=== PATIENT | male | born 1940 | race Caucasian/White ===

== ENCOUNTER 2017-01-05 22:11 | Inpatient (IN) | payer OTHER ==
[~2017-01-05] VITALS: Ht 177.8 cm; Wt 94.4 kg
[~2017-01-05 22:11] MED LIST: Ascorbic Acid,Ester- PO; CLEOCIN T60 ML TP; Coumadin Protocol PO; DONNATAL1 TABLET PO; ERYTHROMYCIN TP; FERROUS SULFATE PO; FLUOXETINE HCL20 M1 PO; Feosol PO; Folvite PO; GLUCOPHAGE500 MG PO; Glucophage PO; HUMALOG100 UNIT/2 SC; Hydrodiuril,Oretic,E PO; K-Dur PO; LANTUS 3 M100 UNITS1 SC; LIPITOR20 MG PO; LOMOTIL TABLET1 EACH PO; Melatonin PO; Oscal 500 w/Vitamin PO; PRANDIN2 MG PO; PROzac PO; Prandin PO; Pravachol PO; Senokot S,Pericolace PO; TYLENOL REGULA325 MG PO; Theragran PO; VALIUM5 MG PO; VITAMIN B-12500 MC5 SL; VITAMIN D400 UNIT PO; Valium PO; Vitamin B-12 PO; Vitamin D PO
[2017-01-06 12:52] VITALS: BP 131/65
[2017-01-06 13:34] LABS: ALKALINE PHOSPHATASE 74 IU/L (3-129); ANION GAP 11 MEQ/L (2-14); CHLORIDE 105 MEQ/L (99-109); GFR ESTIMATE (CALCULATED) > 59 mL/min/; GLUCOSE 71 mg/dL (70-99); POTASSIUM 3.9 MEQ/L (3.7-5.4); SAMPLE HEMOLYSIS CHECK 0; SAMPLE ICTERIC CHECK 0; SAMPLE LIPEMIA CHECK 0; SODIUM 141 MEQ/L (136-147); TOTAL BILIRUBIN 0.6 MG/DL (0.0-1.0); UREA NITROGEN (BUN) 23 mg/dL (9-23)
[2017-01-06 16:39] LABS: POINT-OF-CARE METER ID UU13113675
[2017-01-06 17:52] VITALS: BP 145/67
[2017-01-06 19:34] VITALS: BP 110/57
[2017-01-06 22:41] LABS: POINT-OF-CARE METER ID UU14174215
[2017-01-07 00:22] VITALS: BP 122/57
[2017-01-07 04:17] VITALS: BP 110/60
[2017-01-07 05:32] LABS: HEMATOCRIT 38.9 % (38.0-50.0); MCV 92.2 FL (86-99)
[2017-01-07 06:28] LABS: ANION GAP 9 MEQ/L (2-14); CHLORIDE 106 MEQ/L (99-109); GFR ESTIMATE (CALCULATED) > 59 mL/min/; POTASSIUM 4.3 MEQ/L (3.7-5.4); SAMPLE HEMOLYSIS CHECK 0; SAMPLE ICTERIC CHECK 0; SAMPLE LIPEMIA CHECK 0; SODIUM 140 MEQ/L (136-147); UREA NITROGEN (BUN) 30 mg/dL (9-23)
[2017-01-07 06:29] LABS: GLUCOSE 141 mg/dL (70-99)
[2017-01-07 08:01] LABS: POINT-OF-CARE METER ID UU14174215
[2017-01-07 08:10] VITALS: BP 114/71
[2017-01-07 11:37] VITALS: BP 151/68
[2017-01-07 11:40] LABS: POINT-OF-CARE METER ID UU14174215
[2017-01-07 15:37] VITALS: BP 163/70
[2017-01-07 16:47] LABS: POINT-OF-CARE METER ID UU14174215
[2017-01-07 19:36] VITALS: BP 179/81
[2017-01-07 21:56] LABS: POINT-OF-CARE METER ID UU14174215
[2017-01-08] VITALS (7 sets, daily range): BP systolic 106–180; BP diastolic 54–85
[2017-01-08 07:06] LABS: HEMATOCRIT 34.3 % (38.0-50.0); MCV 88.4 FL (86-99)
[2017-01-08 07:34] LABS: POINT-OF-CARE METER ID UU14174215
[2017-01-08 09:41] LABS: ALKALINE PHOSPHATASE 66 IU/L (3-129); ANION GAP 9 MEQ/L (2-14); CHLORIDE 96 MEQ/L (99-109); GFR ESTIMATE (CALCULATED) > 59 mL/min/; POTASSIUM 3.9 MEQ/L (3.7-5.4); SAMPLE HEMOLYSIS CHECK 0; SAMPLE ICTERIC CHECK 0; SAMPLE LIPEMIA CHECK 0; UREA NITROGEN (BUN) 16 mg/dL (9-23)
[2017-01-08 09:53] LABS: GLUCOSE 237 mg/dL (70-99); SODIUM 130 MEQ/L (136-147); TOTAL BILIRUBIN 1.1 MG/DL (0.0-1.0)
[2017-01-08 10:42] LABS: ADD MIUA? YES; BILIRUBIN NEGATIVE; BLOOD LARGE; COLOR YELLOW ((YELLOW)); GLUCOSE (STRIP) >=500; KETONES 20; LEUKOCYTES NEGATIVE; NITRITE NEGATIVE; PROTEIN (STRIP) 100; SPECIFIC GRAVITY 1.024 (1.000-1.030); UROBILINOGEN 0.2 MG/DL (0.2-1.0)
[2017-01-08 10:46] LABS: BACTERIA RARE /HPF; EPITHELIAL CELLS RARE /HPF; MUCUS TRACE /LPF; RED BLOOD CELLS TNTC /HPF (0-5); WHITE BLOOD CELLS 20-30 /HPF (0-5)
[2017-01-08 11:43] LABS: POINT-OF-CARE METER ID UU14174215
[2017-01-08 16:13] LABS: POINT-OF-CARE METER ID UU14174215
[2017-01-08 17:27] LABS: POINT-OF-CARE METER ID UU14174215
[2017-01-08 21:50] LABS: POINT-OF-CARE METER ID UU14174215
[2017-01-09 00:30] VITALS: BP 179/72
[2017-01-09 03:41] VITALS: BP 140/77
[2017-01-09 08:02] VITALS: BP 177/83
[2017-01-09 11:31] LABS: POINT-OF-CARE METER ID UU13113720
[2017-01-09] MEDS ORDERED: BACTRIM,SEPT1 TABLET PO (11:36)
[2017-01-09] MEDS ORDERED: ELIQUIS2.5 MG PO (11:36)
[2017-01-09] MEDS ORDERED: TAMSULOSIN HCL0.4 MG PO (11:36)
[2017-01-09] MEDS ORDERED: CELECOXIB200 MG PO (11:36)
[2017-01-09] MEDS ORDERED: HYDROCODON-ACE1 EAC7 PO (11:36)
[2017-01-09 11:37] VITALS: BP 138/67
[2017-01-09] MEDS ORDERED: Zeasorb Antifungal T TP (11:37)
[2017-01-09] MEDS ORDERED: SENNA PLUS TAB1 EACH PO (11:37)
[2017-01-09 13:31] LABS: ALKALINE PHOSPHATASE 65 IU/L (3-129); ANION GAP 9 MEQ/L (2-14); CHLORIDE 103 MEQ/L (99-109); GFR ESTIMATE (CALCULATED) > 59 mL/min/; POTASSIUM 3.6 MEQ/L (3.7-5.4); SAMPLE HEMOLYSIS CHECK 0; SAMPLE ICTERIC CHECK 0; SAMPLE LIPEMIA CHECK 0; UREA NITROGEN (BUN) 17 mg/dL (9-23)
[2017-01-09 13:36] LABS: GLUCOSE 109 mg/dL (70-99); SODIUM 137 MEQ/L (136-147); TOTAL BILIRUBIN 0.4 MG/DL (0.0-1.0)
[2017-01-09 15:18] VITALS: BP 140/72
[2017-01-09 16:09] LABS: POINT-OF-CARE METER ID UU14174215
== END 2017-01-09 18:34 | DRG 470 ==
LOC: ENRESERV 22:11 → 2SOUTH 01-06 08:23 → 3WEST 01-06 11:16 → CANRESERV 01-09 07:52 → ENRESERV 01-09 07:52 → 3WEST 01-09 18:34
PROVIDERS: Orthopaedic Surgery; Physician Assistant
PROC: 0SRD0J9 Replacement of Left Knee Joint with Synthetic Substitute, Cemented, Open Approach (ICD-10-PCS; principal; 2017-01-06)
DX: M17.12 Unilateral primary osteoarthritis, left knee (principal); E11.42 Type 2 diabetes mellitus with diabetic polyneuropathy; E87.1 Hypo-osmolality and hyponatremia; N13.8 Other obstructive and reflux uropathy; N39.0 Urinary tract infection, site not specified; B37.2 Candidiasis of skin and nail; R29.6 Repeated falls; N40.1 Benign prostatic hyperplasia with lower urinary tract symptoms; E11.40 Type 2 diabetes mellitus with diabetic neuropathy, unspecified; N31.2 Flaccid neuropathic bladder, not elsewhere classified; Z79.4 Long term (current) use of insulin; Z82.49 Family history of ischemic heart disease and other diseases of the circulatory system; Z82.62 Family history of osteoporosis; Z83.3 Family history of diabetes mellitus; Z96.651 Presence of right artificial knee joint; Z96.643 Presence of artificial hip joint, bilateral; R33.8 Other retention of urine; Z79.84 Long term (current) use of oral hypoglycemic drugs; R41.0 Disorientation, unspecified; R45.1 Restlessness and agitation
CPT/HCPCS: 71010; 80048; 80053; 81003; 82948; 85014; 85018; 87086; 97530 GO; C1713; J0131; J0690; J0696; J1815; J1885; J2250; J2795; J7030; J7050